=== PATIENT | male | born 1950 | race Caucasian/White ===

== ENCOUNTER → 2023-08-22 11:09 | Outpatient (REF) | payer MEDICARE, SELFPAY | LOC: HWRAD 11:09 | PROVIDERS: ATTENDING PHYSICIAN Physician Assistant | DX: N40.1 Benign prostatic hyperplasia with lower urinary tract symptoms (principal); M79.641 Pain in right hand; M79.642 Pain in left hand | CPT/HCPCS: 73130 ==